=== PATIENT | female | born 1975 | race Caucasian/White ===

== ENCOUNTER 2018-06-07 22:22 | Emergency (ER) | payer BC ==
[~2018-06-07] VITALS: Ht 177.8 cm; Wt 110.5 kg
[~2018-06-07 22:22] MED LIST: CLARITIN; FLEXERIL10 MG PO; HYZAAR 25 MG-101 TAB PO; HYZAAR 50-12.1 UDTAB; LORTAB 5/500 501 TAB PO; NO HOME MEDICATIONS; NORVASC 5MG5 MG/TAB; PENICILLIN V250 MG PO; PERCOCET 325 MG1 TA2 PO; PHENERGAN W/CO120 ML PO; SOME BP MED; TOPAMAX50 MG PO; TRAMADOL; ZOFRAN ODT4 MG PO
[2018-06-07 22:24] VITALS: BP 177/91; TEMP 99
[2018-06-07] MEDS ORDERED: CLEOCIN HCL300 MG PO (23:26)
[2018-06-08 00:10] VITALS: PULSE 80
== END 2018-06-08 00:10 | disposition home or self-care (01) ==
LOC: COL.ER 22:22
DX: J02.9 Acute pharyngitis, unspecified (principal)
CPT/HCPCS: J1100

== ENCOUNTER 2018-10-27 09:20 | Emergency (ER) | payer BC ==
[~2018-10-27] VITALS: Ht 175.3 cm; Wt 117.8 kg
[~2018-10-27 09:20] MED LIST changes: +CLEOCIN HCL300 MG PO
[2018-10-27 09:24] VITALS: TEMP 99
[2018-10-27] MEDS ORDERED: NAPROSYN500 MG PO (09:34)
[2018-10-27] MEDS ORDERED: ULTRAM 50MG TAB50 MG PO (09:35)
[2018-10-27 11:45] VITALS: BP 154/89; PULSE 73
== END 2018-10-27 11:50 | disposition home or self-care (01) ==
LOC: COL.ER 09:20
PROVIDERS: Emergency Medicine
DX: G43.909 Migraine, unspecified, not intractable, without status migrainosus (principal); I10 Essential (primary) hypertension; Z90.89 Acquired absence of other organs
CPT/HCPCS: J1200; J2550; J7030